=== PATIENT | female | born 1940 | race Caucasian/White ===

== ENCOUNTER 2017-10-18 11:17 | Emergency (ER) | payer MEDICARE, BC ==
[2017-10-18 11:49] VITALS: BP 139/71
--- NOTE | 2017-10-18 12:17 | UC ---
Abdominal Pain Female HPI - HPI Summary HPI Summary: This lady comes to the urgent care today complaining of worsening epigastric reflux. Has a history of Austin's esophagus has been taking Prilosec added Zantac herself without any relief or change in symptoms. She's tells me she's been followed along her heater tender in [place] her last scope was done in September 2016 with a wanted for her to come back and be seen again in 18 months. Patient denies bloody emesis denies blood in her stool or black tarry stools denies fevers chills no recent illness exposures - History of Current Complaint Chief Complaint: UCGI Stated Complaint: ACID REFLUX PAIN Time Seen by Provider: 10/18/17 12:14 Hx Obtained From: Patient ?: No Onset/Duration: Gradual Onset, Worse Since - past 4 weeks Timing: Constant Severity Initially: Moderate Severity Currently: Moderate Pain Intensity: 8 Pain Scale Used: 0-10 Numeric Location: Epigastric Radiates: No Character: Burning Aggravating Factor(s): Food Alleviating Factor(s): Nothing Associated Signs and Symptoms: Positive: Nausea, Vomiting Allergies/Adverse Reactions: Allergies Allergy/AdvReac Type Severity Reaction Status Date / Time acetaminophen [From Tylenol] Allergy Muscle Ache Verified 10/18/17 11:50 ciprofloxacin [From Cipro] Allergy Hives Verified 10/18/17 11:50 Penicillins Allergy Hives Verified 10/18/17 11:50 Sulfa (Sulfonamide Allergy Hives Verified 10/18/17 11:50 Antibiotics) Home Medications: Home Medications Lansoprazole [Prevacid] 15 mg PO 10/18/17 [History] raNITIdine HCl [Zantac] 150 mg PO 10/18/17 [History] PMH/Surg Hx/FS Hx/Imm Hx Previously Healthy: No Cardiovascular History: Cardiac Disease GI/ History: Gastroesophageal Reflux, Other Other GI/ History: Austin esophagus - Surgical History Surgical History: Yes Surgery Procedure, Year, and Place: hysterectomy age 22, apppendectomy age 8, fx hip 2004, pilonidal cyst - Family History Known Family History: Positive: Unknown - Social History Occupation: Retired Lives: With Family Alcohol Use: Rare Substance Use Type: None Smoking Status (MU): Never Smoked Tobacco Review of Systems Constitutional: Negative Skin: Negative Eyes: Negative ENT: Negative Respiratory: Negative Cardiovascular: Negative Gastrointestinal: Abdominal Pain, Vomiting, Nausea Genitourinary: Negative Motor: Negative Neurovascular: Negative Musculoskeletal: Negative Neurological: Negative Psychological: Negative Is Patient Immunocompromised?: No All Other Systems Reviewed And Are Negative: Yes Physical Exam Triage Information Reviewed: Yes Appearance: Well-Appearing, No Pain Distress, Well-Nourished Vital Signs: Initial Vital Signs Temp 98.8 F 10/18/17 11:32 Pulse 85 10/18/17 11:32 Resp 18 10/18/17 11:32 BP 139/71 10/18/17 11:32 Pulse Ox 98 10/18/17 11:32 Vital Signs Reviewed: Yes Eye Exam: Normal Eyes: Positive: Conjunctiva Clear ENT Exam: Normal ENT: Positive: Normal ENT inspection, Hearing grossly normal, Pharynx normal, TMs normal, Sinus tenderness, Uvula midline. Negative: Trismus, Muffled voice, Hoarse voice Neck exam: Normal Neck: Positive: Supple, Nontender, No Lymphadenopathy Respiratory Exam: Normal Respiratory: Positive: Chest non-tender, Lungs clear, Normal breath sounds, No respiratory distress, No accessory muscle use Cardiovascular Exam: Normal Cardiovascular: Positive: RRR, No Murmur, Pulses Normal, Brisk Capillary Refill Abdominal Exam: Other Abdomen Description: Positive: No Organomegaly, Soft. Negative: CVA Tenderness (R), CVA Tenderness (L), Distended, Guarding, Hernia @ Musculoskeletal Exam: Normal Musculoskeletal: Positive: Strength Intact, ROM Intact, No Edema Neurological Exam: Normal Neurological: Positive: Alert, Muscle Tone Normal Psychological Exam: Normal Psychological: Positive: Normal Response To Family - thank you Skin Exam: Normal Diagnostics - Radiology No standard instances Xray Interpretation: No Acute Changes Radiology Interpretation Completed By: Radiologist - Hiatal hernia - EKG Cardiac Rate: NL Cardiac Rhythm: Sinus: Normal Ectopy: None ST Segment: Non-Specific - Nonspecific ST segment changes that were exactly the same from 2012 Re-Evaluation - Re-Evaluation First Eval Change: Improved - Complete relief with GI cocktail. Education for patient regarding use of medications and medication adherence as patient is behind on her pharmacy pickups. [facility] aid pharmacy [facility] Abd Pain Female Course/Dx - Course Course Of Treatment: encourage medication adherence. diet given to patient for gastritis. Carafate before meals and at bedtime. follow [facility]RA with primary care doctor for referral for GI doctor. The return of pain go directly to the emergency department - Differential Dx/Diagnosis Provider Diagnoses: Gastritis, Austin's esophagitis by history, hiatal hernia, medication nonadherence Discharge - Sign-Out/Discharge Documenting (check all that apply): Discharge - Discharge Plan Condition: Stable Disposition: HOME Prescriptions: Sucralfate TAB* [Carafate*] 1 gm PO ACHS #120 tab Patient Education Materials: Diet for Stomach Ulcers and Gastritis (ED), Gastroesophageal Reflux Disease (ED), Austin Esophagus (ED) Referrals: Marcelo NELSONPSavanah [Primary Care Provider] - As Soon As Possible - Billing Disposition and Condition Condition: STABLE Disposition: HOME
[2017-10-18] MEDS ORDERED: Lidocaine 2% VISCOUS* 15 ML UDC PO ONE (12:26)
[2017-10-18] MEDS ORDERED: Al Hydrox/Mg Hydrox/Simet LIQ* 30 ML UDC PO ONE (12:27)
--- NOTE | 2017-10-18 12:57 | RAD ---
HISTORY: Acid reflux, pain COMPARISONS: July 31, 2012 VIEWS: 4: Frontal dual-energy and lateral views of the chest. FINDINGS: CARDIOMEDIASTINAL SILHOUETTE: The cardiomediastinal silhouette is normal. SCOTTIE: The scottie are normal. PLEURA: The costophrenic angles are sharp. No pleural abnormalities are noted. LUNG PARENCHYMA: The lungs are clear. ABDOMEN: There is a moderate hiatal hernia. BONES AND SOFT TISSUES: Degenerative changes are noted along the spine. OTHER: None. IMPRESSION: HIATAL HERNIA. NO ACTIVE CARDIOPULMONARY DISEASE.
== END 2017-10-18 12:41 | disposition home or self-care (01) ==
LOC: UCEAST 11:17
DX: K29.70 Gastritis, unspecified, without bleeding (principal); K22.70 Barrett's esophagus without dysplasia; K44.9 Diaphragmatic hernia without obstruction or gangrene; I51.9 Heart disease, unspecified; Z88.6 Allergy status to analgesic agent; Z88.1 Allergy status to other antibiotic agents; Z88.0 Allergy status to penicillin; Z88.2 Allergy status to sulfonamides
CPT/HCPCS: 71046; 93005; 99212; A9270-GY; G0463